=== PATIENT | male | born 1985 | race African-American/Black ===

== ENCOUNTER 2019-04-06 00:20 | Emergency (ER) | payer OTHER | END 2019-04-06 02:49 | disposition home or self-care (01) | LOC: JER 00:20 ==

== ENCOUNTER 2019-12-14 11:45 | Emergency (ER) | payer OTHER ==
[2019-12-14 12:06] VITALS: BP 124/60; PULSE 65; TEMP 98; BMI 33.9
[2019-12-14] MEDS ORDERED: LIDOCAINE VISCOUS 2% ORAL/TOP 20 ML UNIT-DOSE CUP MM ONE (12:47)
[2019-12-14] MEDS ORDERED: LIDOCAINE VISCOUS 2% ORAL/TOP 20 ML UNIT-DOSE CUP ONE (12:48)
--- NOTE | 2019-12-14 12:57 | PDOC ---
History of Present Illness - General Chief Complaint: Rash Stated Complaint: SKIN RASH Time Seen by Provider: 12/14/19 12:25 History Source: Patient Exam Limitations: No Limitations - History of Present Illness Initial Comments: 12/14/19 12:51 34-year-old male presents with painful oral ulcers x10 days worsening over the past 4 days, similar painful ulcerations to bilateral upper extremities which have been improving without any intervention, dry cough 4 days ago which is improving. Children had viral illnesses 2 weeks ago. Patient denies recent travel, recent use of antibiotics, headache, neck pain, fever, chills, chest pain, shortness of breath, abdominal pain, vomiting, diarrhea, urinary symptoms or any other complaint. States that this is the fourth episode of painful oral ulcers in the past 4 years. Does not have a PMD at this time however 2 years ago followed up with PMD, ENT and dentist home on agreed that his oral ulcers were due to a virus. ROS: GENERAL/CONSTITUTIONAL: No fever, chills, weakness, dizziness HEAD, EYES, EARS, NOSE AND THROAT: No changes in vision, No ear pain or discharge, No sore throat CARDIOVASCULAR: No chest pain RESPIRATORY: No shortness of breath or cough GASTROINTESTINAL: No pain, nausea, vomiting, diarrhea or constipation GENITOURINARY: No dysuria MUSCULOSKELETAL: No neck or back pain SKIN: Painful ulcerations to oral mucosa and rash to upper extremities NEUROLOGIC: No headache, vertigo, loss of consciousness, or loss of sensation PE: GENERAL: well-appearing, NAD HEAD: NCAT EYES: Pupils equal, round and reactive to light, sclera anicteric, conjunctiva clear ENT: Bilateral normal ear canals, pharynx: no erythema, no exudate, uvula midline NECK: supple, no lymphadenopathy CHEST: nontender RESP: clear, no w/r/r CARDIO: rrr, no m/g/r ABD: +BS, soft, nontender, non distended BACK: no midline spinal ttp, no CVAT EXTREMITIES: Normal range of motion, no edema NEUROLOGICAL: Normal speech, normal gait SKIN: Few discrete ulcers with erythematous halo to buccal mucosa and gums Is this a multiple visit Asthma Patient?: No Past History - Past Medical History Allergies/Adverse Reactions: Allergies Allergy/AdvReac Type Severity Reaction Status Date / Time No Known Allergies Allergy Verified 12/14/19 12:06 Home Medications: Ambulatory Orders Ibuprofen [Motrin] 800 mg PO TID #30 tablet 01/07/16 Methocarbamol [Robaxin -] 1,000 mg PO TID #30 tablet 01/07/16 Oxycodone HCl/Acetaminophen [Percocet 5-325 mg Tablet] 1 - 2 tab PO Q6H #20 tablet 01/07/16 Cyclobenzaprine HCl [Flexeril -] 10 mg PO TID #9 tablet 03/12/16 COPD: No GI Disorders: Yes (H/O HEMORRHOIDS.) - Immunization History Immunization Up to Date: Yes - Psycho Social/Smoking Cessation Hx Smoking History: Never smoked Have you smoked in the past 12 months: No Information on smoking cessation initiated: No Hx Alcohol Use: Yes (social) Drug/Substance Use Hx: No Substance Use Type: None *Physical Exam - Vital Signs Last Vital Signs Temp Pulse Resp BP Pulse Ox 98.0 F 65 16 124/60 100 12/14/19 12:03 12/14/19 12:03 12/14/19 12:03 12/14/19 12:03 12/14/19 12:03 Medical Decision Making - Medical Decision Making 12/14/19 12:57 34-year-old male with painful oral sores x10 days, dry cough x4 days which have resolved, in contact with 2 children who had viral illnesses 2 weeks ago. Physical exam consistent with aphthous ulcers Viscous lidocaine Stable for discharge Strict return precautions discussed Discharge - Discharge Information Problems reviewed: Yes Clinical Impression/Diagnosis: Aphthous ulcer Condition: Stable Disposition: HOME - Admission No - Follow up/Referral - Patient Discharge Instructions Additional Instructions: Use viscous lidocaine 2% swish and spit every 8 hours as needed for pain Return to ED if you develop fever, chills, chest pain, shortness of breath, difficulty swallowing, or any worsening symptom - Post Discharge Activity
== END 2019-12-14 13:09 | disposition home or self-care (01) ==
LOC: JERFT 11:45
DX: K12.1 Other forms of stomatitis (principal)
CPT/HCPCS: 99281-25

== ENCOUNTER 2023-03-26 16:00 | Emergency (ER) | payer OTHER ==
[2023-03-26 16:03] VITALS: BP 138/72; PULSE 67; RESP 18; TEMP 98.2; BMI 33.9
== END 2023-03-26 18:21 | disposition home or self-care (01) ==
LOC: JER 16:00 → JERFT 16:00 → JER 18:21
DX: R05.9 Cough, unspecified (principal); R07.0 Pain in throat; R09.81 Nasal congestion; J06.9 Acute upper respiratory infection, unspecified; Z20.822 Contact with and (suspected) exposure to COVID-19
CPT/HCPCS: 0241U-QW; 87651; 99283-25